=== PATIENT | male | born 1965 | race Caucasian/White ===

== ENCOUNTER 2019-03-26 17:59 | Inpatient (IN) | payer SELFPAY ==
[~2019-03-26] VITALS: Ht 177.8 cm; Wt 122.7 kg
[2019-03-26 19:02] LABS: BASOPHILS # (AUTO) 0.1 X10'3 (0-0.2); BASOPHILS % (AUTO) 0.6 % (0-1); EOSINOPHILS # (AUTO) 0.1 X10'3 (0-0.9); EOSINOPHILS % (AUTO) 0.8 % (0-6); HEMATOCRIT 43.9 % (42.0-52.0); HEMOGLOBIN 15.3 g/dl (14.0-17.9); LYMPHOCYTES # (AUTO) 1.7 X10'3 (1.1-4.8); LYMPHOCYTES % (AUTO) 13.7 % (21-51); MEAN CORPUSCULAR HEMOGLOBIN 30.7 PG (27.0-31.0); MEAN CORPUSCULAR VOLUME 87.8 FL (78-98); MEAN PLATELET VOLUME 7.7 FL (7.4-10.4); MONOCYTES # (AUTO) 1.1 X10'3 (0-0.9); MONOCYTES % (AUTO) 8.8 % (2-12); NEUTROPHILS # (AUTO) 9.6 X10'3 (1.8-7.7); NEUTROPHILS % (AUTO) 76.1 % (42-75); PLATELET COUNT 237 X10'3 (140-440); RED CELL DISTRIBUTION WIDTH 13.1 % (11.5-14.5); WHITE BLOOD COUNT 12.6 X10'3 (4.5-11.0)
[2019-03-26 19:14] LABS: ALANINE AMINOTRANSFERASE 33 U/L (12-78); ALBUMIN 3.5 G/DL (3.4-5.0); ALBUMIN/GLOBULIN RATIO 0.8 (1.1-1.5); ALKALINE PHOSPHATASE 62 IU/L (46-116); ANION GAP 8 (8-16); ASPARTATE AMINO TRANSFERASE 15 U/L (10-37); BILIRUBIN,TOTAL 1.3 MG/DL (0.1-1.0); BLOOD UREA NITROGEN 18 MG/DL (7-18); BUN/CREATININE RATIO 14.9 (5.4-32.0); CALCIUM 9.9 MG/DL (8.5-10.1); CHLORIDE 97 MMOL/L (99-107); CREATININE 1.21 MG/DL (0.60-1.10); GLUCOSE 100 MG/DL (70-104); POTASSIUM 4.1 MMOL/L (3.5-5.1); SODIUM 133 MMOL/L (135-145); TOTAL CARBON DIOXIDE 28.2 MMOL/L (24-32); eGFR 62 ML/MIN
[2019-03-26 19:42] LABS: INR 1.1 INR
[2019-03-26 20:56] LABS: LIPASE 162 U/L (73-393)
[2019-03-26 20:59] LABS: COLOR,URINE YELLOW (Yellow); GLUCOSE, URINE NEGATIVE (Neg); KETONES,URINE 40 mg/dl (Neg); LEUKOCYTE ESTERASE ,URINE NEGATIVE (Neg); OCCULT BLOOD,URINE SMALL (Neg); PH,URINE 5.5 (4.8-8.0); PROTEIN,URINE 30 mg/dl (Neg); UROBILINOGEN,URINE 0.2 E.U/dL (0.2-1.0)
[2019-03-26 21:04] LABS: CLARITY,URINE SLIGHTLY CLOUDY (Clear); NITRITES, URINE NEGATIVE (Neg); UA COLLECTION TYPE CLN CATCH MIDSTREAM
[2019-03-26 21:05] LABS: BACTERIA,URINE FEW /HPF (Neg); MUCUS STRANDS MANY /LPF (Neg); RBC,URINE 0-2 /HPF (0-2); SQUAMOUS EPITHELIAL CELL,UR FEW /LPF (FEW); WBC,URINE 0-4 /HPF (0-4)
[2019-03-26] MEDS ORDERED: metroNIDAZOLE-Flagyl 500mg/NS 100 ML IV STA (21:47)
[2019-03-26] MEDS ORDERED: piperacillin/tazo 3.375gm/50ml 50 ML IV ONE (21:55)
[2019-03-26] MEDS ORDERED: potassium Cl 40MEQ/NS 500ml 500 ML IV PRN ×2 (22:05)
[2019-03-26] MEDS ORDERED: magnesium 2GM in 50ml NS 50 ML IV PRN (22:05)
[2019-03-26] MEDS ORDERED: magnesium Cl slow-release 64mg tablet PO PRN (22:05)
[2019-03-26] MEDS ORDERED: acetaminophen 325mg tablet PO PRN (22:05)
[2019-03-26] MEDS ORDERED: ondansetron/PF 4mg/2ml inj IV PRN (22:05)
[2019-03-26] MEDS ORDERED: morphine 2 MG/ML inj. syringe IV PRN (22:05)
[2019-03-26] MEDS ORDERED: potassium Cl 20 mEq SR tablet PO PRN ×2 (22:05)
[2019-03-26] MEDS ORDERED: magnesium 4gm in 100ml NS 100 ML IV PRN (22:05)
[2019-03-26] MEDS ORDERED: LISI-600 PO (22:28)
[2019-03-26] MEDS ORDERED: BUSP5TAB3 PO (22:28)
[2019-03-26] MEDS: normal saline 1000ml 1,000 ML IV SCH (22:52)
[2019-03-26 23:45] VITALS: BP 131/85
[2019-03-27] MEDS: metroNIDAZOLE-Flagyl 500mg/NS 100 ML IV SCH ×3 (05:05→22:18)
[2019-03-27 05:33] LABS: ALANINE AMINOTRANSFERASE 28 U/L (12-78); ALBUMIN/GLOBULIN RATIO 0.7 (1.1-1.5); ALKALINE PHOSPHATASE 58 IU/L (46-116); ANION GAP 10 (8-16); ASPARTATE AMINO TRANSFERASE 18 U/L (10-37); BLOOD UREA NITROGEN 18 MG/DL (7-18); BUN/CREATININE RATIO 18.2 (5.4-32.0); CALCIUM 9.1 MG/DL (8.5-10.1); CHLORIDE 100 MMOL/L (99-107); CREATININE 0.99 MG/DL (0.60-1.10); GLUCOSE 102 MG/DL (70-104); SODIUM 135 MMOL/L (135-145); TOTAL CARBON DIOXIDE 25.4 MMOL/L (24-32); TOTAL PROTEIN 7.2 G/DL (6.4-8.2); eGFR 78 ML/MIN
[2019-03-27 05:47] LABS: BASOPHILS % (AUTO) 0.4 % (0-1); EOSINOPHILS # (AUTO) 0.1 X10'3 (0-0.9); EOSINOPHILS % (AUTO) 1.5 % (0-6); HEMATOCRIT 41.4 % (42.0-52.0); HEMOGLOBIN 14.3 g/dl (14.0-17.9); LYMPHOCYTES # (AUTO) 1.2 X10'3 (1.1-4.8); MEAN CORPUSCULAR HEMOGLOBIN 30.2 PG (27.0-31.0); MEAN CORPUSCULAR HGB CONC 34.6 g/dL (33.0-36.5); MEAN CORPUSCULAR VOLUME 87.3 FL (78-98); MEAN PLATELET VOLUME 8.1 FL (7.4-10.4); MONOCYTES # (AUTO) 0.9 X10'3 (0-0.9); MONOCYTES % (AUTO) 10.5 % (2-12); NEUTROPHILS # (AUTO) 6.2 X10'3 (1.8-7.7); NEUTROPHILS % (AUTO) 73.6 % (42-75); PLATELET COUNT 211 X10'3 (140-440); RED BLOOD COUNT 4.74 X10'6 (4.70-6.10); RED CELL DISTRIBUTION WIDTH 13.2 % (11.5-14.5); WHITE BLOOD COUNT 8.5 X10'3 (4.5-11.0)
[2019-03-27] MEDS ORDERED: piperacillin/tazo 3.375gm/50ml 50 ML IV SCH ×2 (06:00)
[2019-03-27] MEDS: K and/or MAG REPLACEMENT MC SCH (06:39)
--- NOTE | 2019-03-27 06:40 | NUR ---
Problems reprioritized. Patient report given, questions answered & plan of care reviewed with Dorothea RN. pt resting, at bedside. IV intact. call light and frq used belongings within reach.
[2019-03-27 07:00] VITALS: BP 123/82
[2019-03-27] MEDS ORDERED: enoxaparin 40mg/0.4ml syringe SQ SCH (08:00)
[2019-03-27] MEDS: normal saline 1000ml 1,000 ML IV SCH ×3 (08:01→22:20)
[2019-03-27] MEDS: busPIRone 5mg tablet PO SCH (08:33)
[2019-03-27] MEDS: lisinopril 10 MG tablet PO SCH (08:33)
[2019-03-27] MEDS: morphine 2 MG/ML inj. syringe IV PRN ×2 (08:38→18:49)
[2019-03-27] MEDS: levoFLOXACIN-Levaquin 750MG/D5 150 ML IV SCH (10:47)
[2019-03-27 11:00] VITALS: BP 97/65
--- NOTE | 2019-03-27 18:24 | NUR ---
Problems reprioritized. Patient report given, questions answered & plan of care reviewed with YONG VALDES.
[2019-03-27 19:00] VITALS: BP 124/75
[2019-03-27] MEDS: lactobacillus rhamnosus 10,000 MMU CELLS/CAPSULE PO SCH (20:20)
[2019-03-27] MEDS: heparin, porcine 5000 units/ml vial SQ SCH (20:23)
[2019-03-28] VITALS: BP 114/69
[2019-03-28 05:28] LABS: BASOPHILS # (AUTO) 0.1 X10'3 (0-0.2); BASOPHILS % (AUTO) 0.9 % (0-1); EOSINOPHILS # (AUTO) 0.2 X10'3 (0-0.9); EOSINOPHILS % (AUTO) 2.6 % (0-6); HEMATOCRIT 42.1 % (42.0-52.0); HEMOGLOBIN 14.2 g/dl (14.0-17.9); LYMPHOCYTES # (AUTO) 1.1 X10'3 (1.1-4.8); LYMPHOCYTES % (AUTO) 18.5 % (21-51); MEAN CORPUSCULAR HEMOGLOBIN 29.5 PG (27.0-31.0); MEAN CORPUSCULAR HGB CONC 33.8 g/dL (33.0-36.5); MEAN CORPUSCULAR VOLUME 87.1 FL (78-98); MEAN PLATELET VOLUME 7.8 FL (7.4-10.4); MONOCYTES # (AUTO) 0.6 X10'3 (0-0.9); MONOCYTES % (AUTO) 9.6 % (2-12); NEUTROPHILS # (AUTO) 4.2 X10'3 (1.8-7.7); NEUTROPHILS % (AUTO) 68.4 % (42-75); PLATELET COUNT 217 X10'3 (140-440); RED BLOOD COUNT 4.83 X10'6 (4.70-6.10); RED CELL DISTRIBUTION WIDTH 12.8 % (11.5-14.5); WHITE BLOOD COUNT 6.2 X10'3 (4.5-11.0)
[2019-03-28 05:51] LABS: ALANINE AMINOTRANSFERASE 32 U/L (12-78); ALBUMIN 2.7 G/DL (3.4-5.0); ALBUMIN/GLOBULIN RATIO 0.7 (1.1-1.5); ALKALINE PHOSPHATASE 54 IU/L (46-116); ANION GAP 10 (8-16); ASPARTATE AMINO TRANSFERASE 11 U/L (10-37); BILIRUBIN,TOTAL 0.6 MG/DL (0.1-1.0); BLOOD UREA NITROGEN 14 MG/DL (7-18); BUN/CREATININE RATIO 14.6 (5.4-32.0); CALCIUM 9.3 MG/DL (8.5-10.1); CHLORIDE 106 MMOL/L (99-107); CREATININE 0.96 MG/DL (0.60-1.10); GLUCOSE 101 MG/DL (70-104); MAGNESIUM 1.9 MG/DL (1.5-2.4); POTASSIUM 4.2 MMOL/L (3.5-5.1); SODIUM 140 MMOL/L (135-145); TOTAL CARBON DIOXIDE 24.3 MMOL/L (24-32); TOTAL PROTEIN 6.8 G/DL (6.4-8.2); eGFR 81 ML/MIN
--- NOTE | 2019-03-28 06:06 | NUR ---
Problems reprioritized. Patient report given, questions answered & plan of care reviewed with Mariza VALDES. Addendum: 03/28/19 at 0606 by Ingrid Delgado RN Amended: Links added.
--- NOTE | 2019-03-28 06:16 | NUR ---
Patient in room [facility]. I have received report from Ingrid VALDES and had the opportunity to ask questions and assume patient care.
[2019-03-28] MEDS: lisinopril 10 MG tablet PO SCH (07:53)
[2019-03-28] MEDS: metroNIDAZOLE-Flagyl 500mg/NS 100 ML IV SCH ×2 (07:53→21:39)
[2019-03-28] MEDS: lactobacillus rhamnosus 10,000 MMU CELLS/CAPSULE PO SCH ×2 (07:53→20:26)
[2019-03-28] MEDS: busPIRone 5mg tablet PO SCH (07:53)
[2019-03-28] MEDS: morphine 2 MG/ML inj. syringe IV PRN ×2 (07:53→19:20)
[2019-03-28] MEDS: levoFLOXACIN-Levaquin 750MG/D5 150 ML IV SCH (07:53)
[2019-03-28] MEDS: heparin, porcine 5000 units/ml vial SQ SCH ×2 (07:54→20:26)
[2019-03-28] MEDS: K and/or MAG REPLACEMENT MC SCH (08:00)
--- NOTE | 2019-03-28 09:23 | NUR ---
Dr. Herman rounded on pt and discussed w/ pt and need for colonoscopy to dx any other issues such as cancer, that pt will need to be on IV abx (Levaquin and Flagyl) a total of 5 days (thru 03/31) then another 5 days of PO abx. MD discussed the likelihood of future colon surgery, and the risk of perforations to recur. MD further instructed on diet and to avoid roughage/gas producing foods once on solid foods, and pt will f/u w/ Dr. Herman after discharge. Pt's stated they have no insurance coverage and the next open enrollment for "[facility]" is in September 2019. Dr. Herman discussed risks, benefits, and alternatives of waiting until September for further diagnostics/treatment/colonoscopy. Dr. Herman stated he will manage the pt's medical needs until discharge, and that the Hospitalist service should be notified. Page sent to Dr. Nunez. Primary care RN, Mariza, notified.
[2019-03-28 09:37] VITALS: BP 130/86
[2019-03-28 11:00] VITALS: BP 104/67
[2019-03-28] MEDS: normal saline 1000ml 1,000 ML IV SCH ×2 (11:39→20:30)
[2019-03-28] MEDS ORDERED: metroNIDAZOLE 500mg tablet PO SCH (14:00)
--- NOTE | 2019-03-28 18:11 | NUR ---
Problems reprioritized. Patient report given, questions answered & plan of care reviewed with Gael VALDES.
[2019-03-28 18:40] VITALS: BP 117/70
[2019-03-29 05:20] LABS: BASOPHILS % (AUTO) 0.6 % (0-1); EOSINOPHILS # (AUTO) 0.1 X10'3 (0-0.9); EOSINOPHILS % (AUTO) 1.8 % (0-6); HEMATOCRIT 39.9 % (42.0-52.0); HEMOGLOBIN 13.8 g/dl (14.0-17.9); LYMPHOCYTES # (AUTO) 1.2 X10'3 (1.1-4.8); LYMPHOCYTES % (AUTO) 18.9 % (21-51); MEAN CORPUSCULAR HGB CONC 34.6 g/dL (33.0-36.5); MEAN CORPUSCULAR VOLUME 86.6 FL (78-98); MEAN PLATELET VOLUME 7.8 FL (7.4-10.4); MONOCYTES # (AUTO) 0.7 X10'3 (0-0.9); MONOCYTES % (AUTO) 10.8 % (2-12); NEUTROPHILS # (AUTO) 4.3 X10'3 (1.8-7.7); NEUTROPHILS % (AUTO) 67.9 % (42-75); PLATELET COUNT 235 X10'3 (140-440); RED BLOOD COUNT 4.61 X10'6 (4.70-6.10); WHITE BLOOD COUNT 6.3 X10'3 (4.5-11.0)
[2019-03-29 05:28] LABS: ALANINE AMINOTRANSFERASE 30 U/L (12-78); ALBUMIN 2.7 G/DL (3.4-5.0); ALBUMIN/GLOBULIN RATIO 0.7 (1.1-1.5); ALKALINE PHOSPHATASE 50 IU/L (46-116); ANION GAP 8 (8-16); ASPARTATE AMINO TRANSFERASE 13 U/L (10-37); BILIRUBIN,TOTAL 0.5 MG/DL (0.1-1.0); BLOOD UREA NITROGEN 13 MG/DL (7-18); BUN/CREATININE RATIO 13.3 (5.4-32.0); CALCIUM 8.8 MG/DL (8.5-10.1); CHLORIDE 106 MMOL/L (99-107); CREATININE 0.98 MG/DL (0.60-1.10); GLUCOSE 100 MG/DL (70-104); MAGNESIUM 1.7 MG/DL (1.5-2.4); SODIUM 140 MMOL/L (135-145); TOTAL CARBON DIOXIDE 26.3 MMOL/L (24-32); TOTAL PROTEIN 6.5 G/DL (6.4-8.2); eGFR 79 ML/MIN
[2019-03-29] MEDS: normal saline 1000ml 1,000 ML IV SCH ×2 (06:05→20:03)
[2019-03-29] MEDS: metroNIDAZOLE-Flagyl 500mg/NS 100 ML IV SCH ×3 (06:05→22:12)
--- NOTE | 2019-03-29 06:12 | NUR ---
I have received report from Gael VALDES and had the opportunity to ask questions and assume patient care.
--- NOTE | 2019-03-29 06:37 | NUR ---
Problems reprioritized. Patient report given, questions answered & plan of care reviewed with ESTEFANY. Addendum: 03/29/19 at 0637 by Oc Aaron RN Amended: Links added.
[2019-03-29 07:30] VITALS: BP 140/88
[2019-03-29] MEDS: levoFLOXACIN-Levaquin 750MG/D5 150 ML IV SCH (07:53)
[2019-03-29] MEDS: heparin, porcine 5000 units/ml vial SQ SCH ×2 (07:53→20:01)
[2019-03-29] MEDS: lactobacillus rhamnosus 10,000 MMU CELLS/CAPSULE PO SCH ×2 (07:53→19:56)
[2019-03-29] MEDS: lisinopril 10 MG tablet PO SCH (07:54)
[2019-03-29] MEDS: busPIRone 5mg tablet PO SCH (07:55)
[2019-03-29] MEDS: K and/or MAG REPLACEMENT MC SCH (08:00)
[2019-03-29 11:00] VITALS: BP 124/85
[2019-03-29] MEDS ORDERED: levoFLOXACIN 750MG TABLET PO SCH (11:00)
--- NOTE | 2019-03-29 16:03 | NUR ---
Student documentation: I have reviewed and agree with all interventions, assessments performed and documented by Tigist ARRIAGA from [facility]. Student Medication Administration: For medication-pass' this shift, all medication were reviewed, dispensed, administered and documented per hospital policy by Tigist ARRIAGA from [facility].
--- NOTE | 2019-03-29 18:10 | NUR ---
Patient in room [facility]. I have received report from ESTEFANY VALDES and had the opportunity to ask questions and assume patient care. Addendum: 03/29/19 at 1917 by Ashely Huitron RN Amended: Links added.
--- NOTE | 2019-03-29 18:19 | NUR ---
Problems reprioritized. Patient report given, questions answered & plan of care reviewed with Ashely VALDES.
[2019-03-29 19:30] VITALS: BP 120/74
--- NOTE | 2019-03-29 19:35 | NUR ---
A/O PLEASANT TOOK HS MEDS DENIES C/O PAIN AT THIS TIME.
--- NOTE | 2019-03-29 22:00 | NUR ---
[facility] GONCALV[facility] FOR PT DENIES C/O PAIN.
[2019-03-30] VITALS: BP 146/78
--- NOTE | 2019-03-30 | NUR ---
PT SNORING NO S&S OF DISTRESS AT THIS TIME.
--- NOTE | 2019-03-30 02:00 | NUR ---
resting on his side eyes closed no s&S of distress at this time.
--- NOTE | 2019-03-30 04:00 | NUR ---
pt snoring no s&S of distress at this time.
--- NOTE | 2019-03-30 05:11 | NUR ---
rolled to side after labs drawn snoring.
[2019-03-30 05:12] LABS: WHITE BLOOD COUNT 6.6 X10'3 (4.5-11.0)
[2019-03-30 05:16] LABS: BASOPHILS # (AUTO) 0.1 X10'3 (0-0.2); BASOPHILS % (AUTO) 0.9 % (0-1); EOSINOPHILS # (AUTO) 0.1 X10'3 (0-0.9); EOSINOPHILS % (AUTO) 2.1 % (0-6); HEMATOCRIT 38.7 % (42.0-52.0); HEMOGLOBIN 13.5 g/dl (14.0-17.9); LYMPHOCYTES # (AUTO) 1.5 X10'3 (1.1-4.8); LYMPHOCYTES % (AUTO) 22.3 % (21-51); MEAN CORPUSCULAR HEMOGLOBIN 30.2 PG (27.0-31.0); MEAN CORPUSCULAR VOLUME 86.3 FL (78-98); MEAN PLATELET VOLUME 7.8 FL (7.4-10.4); MONOCYTES # (AUTO) 0.7 X10'3 (0-0.9); MONOCYTES % (AUTO) 11.1 % (2-12); NEUTROPHILS # (AUTO) 4.2 X10'3 (1.8-7.7); NEUTROPHILS % (AUTO) 63.6 % (42-75); PLATELET COUNT 253 X10'3 (140-440); RED BLOOD COUNT 4.48 X10'6 (4.70-6.10); RED CELL DISTRIBUTION WIDTH 12.7 % (11.5-14.5)
[2019-03-30 05:23] LABS: ALANINE AMINOTRANSFERASE 34 U/L (12-78); ALBUMIN 2.7 G/DL (3.4-5.0); ALBUMIN/GLOBULIN RATIO 0.7 (1.1-1.5); ALKALINE PHOSPHATASE 44 IU/L (46-116); ANION GAP 9 (8-16); ASPARTATE AMINO TRANSFERASE 21 U/L (10-37); BILIRUBIN,TOTAL 0.4 MG/DL (0.1-1.0); BLOOD UREA NITROGEN 10 MG/DL (7-18); BUN/CREATININE RATIO 10.2 (5.4-32.0); CALCIUM 8.9 MG/DL (8.5-10.1); CHLORIDE 107 MMOL/L (99-107); CREATININE 0.98 MG/DL (0.60-1.10); GLUCOSE 93 MG/DL (70-104); MAGNESIUM 1.5 MG/DL (1.5-2.4); POTASSIUM 3.9 MMOL/L (3.5-5.1); SODIUM 141 MMOL/L (135-145); TOTAL CARBON DIOXIDE 25.5 MMOL/L (24-32); TOTAL PROTEIN 6.4 G/DL (6.4-8.2); eGFR 79 ML/MIN
[2019-03-30] MEDS: normal saline 1000ml 1,000 ML IV SCH ×2 (05:37→14:44)
[2019-03-30] MEDS: metroNIDAZOLE-Flagyl 500mg/NS 100 ML IV SCH ×3 (05:37→20:54)
--- NOTE | 2019-03-30 06:10 | NUR ---
Patient in room [facility]. I have received report from Ashely VALDES and had the opportunity to ask questions and assume patient care.
--- NOTE | 2019-03-30 06:15 | NUR ---
Problems reprioritized. Patient report given, questions answered & plan of care reviewed with ESTEFANY VALDES. Addendum: 03/30/19 at 0619 by Ashely Huitron RN Amended: Links added.
--- NOTE | 2019-03-30 07:09 | NUR ---
Patient in room [facility]. I have received report from KEISHA Dawkins and had the opportunity to ask questions and assume patient care.
[2019-03-30] MEDS: heparin, porcine 5000 units/ml vial SQ SCH ×2 (07:32→19:39)
[2019-03-30] MEDS: levoFLOXACIN-Levaquin 750MG/D5 150 ML IV SCH (07:35)
[2019-03-30] MEDS: busPIRone 5mg tablet PO SCH (07:35)
[2019-03-30] MEDS: lisinopril 10 MG tablet PO SCH (07:35)
[2019-03-30] MEDS: lactobacillus rhamnosus 10,000 MMU CELLS/CAPSULE PO SCH ×2 (07:35→19:44)
[2019-03-30 07:38] VITALS: BP 135/79
[2019-03-30] MEDS: K and/or MAG REPLACEMENT MC SCH (08:00)
--- NOTE | 2019-03-30 11:56 | NUR ---
Student documentation: I have reviewed and agree with all interventions, assessments performed and documented by Ann, nursing unit coordinator.
--- NOTE | 2019-03-30 11:57 | NUR ---
Student Medication Administration: For this medication-pass time frame, all medication were reviewed, dispensed, administered and documented per hospital policy by domo Juarez student.
--- NOTE | 2019-03-30 12:00 | NUR ---
Problems reprioritized. Patient report given, questions answered & plan of care reviewed with KEISHA Dawkins.
--- NOTE | 2019-03-30 12:10 | NUR ---
Patient in room [facility]. I have received report from Kellie JuarezN Student and had the opportunity to ask questions and assume patient care.
[2019-03-30 12:29] VITALS: BP 170/79
--- NOTE | 2019-03-30 12:37 | NUR ---
Pharmacy called to change patients IV abx to PO, notified pharmacist that patient is to only be on IV abx only per MD.
--- NOTE | 2019-03-30 15:40 | NUR ---
Student documentation: I have reviewed and agree with all interventions, assessments performed and documented by Eliezer student nurse.
--- NOTE | 2019-03-30 18:30 | NUR ---
Problems reprioritized. Patient report given, questions answered & plan of care reviewed with Grant VALDES.
--- NOTE | 2019-03-30 18:30 | NUR ---
Patient in room [facility]. I have received report from Mariza VALDES and had the opportunity to ask questions and assume patient care. Patient sitting in chair, finishing dinner, states will be up walking soon, discharge and IV ABX discussed. Will continue to monitor.
[2019-03-30 20:11] VITALS: BP 140/79
[2019-03-30 22:10] VITALS: BP 156/89
--- NOTE | 2019-03-30 22:10 | NUR ---
Patient's at bedside, both very attentive to education in regards to follow up appointment Friday at 9 am, S/S to call MD or ED for, IV removed per protocol, vital signs stable, Walked out by staff member. Patient discharged at this time.
== END 2019-03-30 22:15 | disposition home or self-care (01) | DRG 392 ==
LOC: ER 18:01 → SUR 3N 22:01 → EDBEDREQ 03-27 00:03 → CMPBEDREQ 03-27 15:13
PROVIDERS: ADMIT Family Medicine; ATTEND Surgery
DX: K57.20 Diverticulitis of large intestine with perforation and abscess without bleeding (principal); N17.9 Acute kidney failure, unspecified; I10 Essential (primary) hypertension; D64.9 Anemia, unspecified; Z87.891 Personal history of nicotine dependence; Z88.5 Allergy status to narcotic agent; Z79.899 Other long term (current) drug therapy
CPT/HCPCS: 36415; 74176; 80053; 81001; 83690; 83735; 85025; 85610; 87070; 99285; G0378; J1644; J1956; J2270; J2543; J3490; J7030